=== PATIENT | female | born 1935 | race Caucasian/White ===

== ENCOUNTER 2016-08-17 08:58 | Day surgery (SDC) | payer MEDICARE, OTHER ==
[~2016-08-17 08:58] MED LIST: Cefuroxime 10 MG/ML SYRINGE EYELF SCH; Lidocaine 1% PF 2 ML SDV INJECT SCH; Pilocarpine 4% Ophth Soln 15 ML Bot EYELF SCH; Proparacaine 0.5% Ophth Soln 15 ML Bottle EYEBOTH SCH; Tetracaine 0.5% 2 ML Bottle EYELF SCH
[2016-08-17] MEDS: Polymyxin B/Trimethoprim 10 ML Bottle EYELF SCH ×3 (10:18→11:39)
[2016-08-17] MEDS: Brimonidine 0.2% Ophth Soln 5 ML Bottle EYELF SCH ×3 (10:22→11:39)
[2016-08-17] MEDS: Phenylephrine 2.5% Ophth Soln 2 ML Bot EYELF SCH ×5 (10:24→11:28)
--- NOTE | 2016-08-17 10:45 | PCM.PREANE ---
Preanesthetic Assessment - Anesthesia/Transfusion/Family Hx Anesthesia History: Prior Anesthesia Without Reaction Family History of Anesthesia Reaction: No - Review of Systems General: No Symptoms Pulmonary: No Symptoms Cardiovascular: No Symptoms Gastrointestinal: No symptoms Neurological: No Symptoms Other: Reports: None - Physical Assessment NPO Status Date: 08/17/16 NPO Status Time: 06:30 O2 Sat by Pulse Oximetry: 99 Respiratory Rate: 16 Vital Signs: Last Vital Signs Temp 36.2 C 08/17/16 10:00 Pulse 51 L 08/17/16 10:00 Resp 16 08/17/16 10:00 BP 153/47 H 08/17/16 10:00 Pulse Ox 99 08/17/16 10:00 Height: 1.55 m Weight: 68.039 kg ASA Class: 2 Mental Status: Alert & Oriented x3 Airway Class: Mallampati = 1 Dentition: Reports: Dentures, Partial Thyro-Mental Finger Breadths: 3 Mouth Opening Finger Breadths: 3 ROM/Head Extension: Full Lungs: Clear to auscultation, Normal respiratory effort Cardiovascular: Murmurs - Allergies Allergies/Adverse Reactions: Allergies Allergy/AdvReac Type Severity Reaction Status Date / Time No Known Allergies Allergy Verified 08/16/16 13:25 - Anesthesia Plan Beta Emeterio: Metoprolol Med Last Dose Date: 08/17/16 Med Last Dose Time: 06:30 - Acknowledgements Anesthesia Type Planned: MAC Pt an Appropriate Candidate for the Planned Anesthesia: Yes Alternatives and Risks of Anesthesia Discussed w Pt/Guardian: Yes Pt/Guardian Understands and Agrees with Anesthesia Plan: Yes PreAnesthesia Questionnaire HEENT History: Reports: Impaired vision Other HEENT History: wears eyeglasses Cardiovascular History: Reports: High cholesterol, Hypertension, Other (see below) (murmur) Other Cardiovascular History: leaky heart valve Respiratory History: Reports: None Gastrointestinal History: Reports: None, GERD 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 There was also some evidence of fusion of the pubic symphysis. Moderate amount of degenerative arthritis in both hips.) Neurological History: Reports: None Psychiatric History: Reports: None Endocrine/Metabolic History: Reports: None Hematologic History: Reports: None Immunologic History: Reports: None Dermatologic History: Reports: None - Infectious Disease History Infectious Disease History: Reports: C-difficile, Influenza - Past Surgical History Head Surgeries/Procedures: Reports: None HEENT Surgical History: Reports: None Cardiovascular Surgical History: Reports: None Respiratory Surgical History: Reports: None GI Surgical History: Reports: Cholecystectomy, Colonoscopy Female Surgical History: Reports: Hysterectomy Male Surgical History: Reports: None Endocrine Surgical History: Reports: None Neurological Surgical History: Reports: None Musculoskeletal Surgical History: Reports: None Oncologic Surgical History: Reports: None Dermatological Surgical History: Reports: None (no anesthetic compications) - Past Imaging History Past Imaging History: Reports: None - SUBSTANCE USE Smoking Status *Q: Never Smoker Second Hand Smoke Exposure: No Recreational Drug Use History: No - HOME MEDS Home Medications: Home Meds Acetaminophen [Tylenol Extra Strength] 500 - 1,000 mg PO Q6H PRN 08/01/15 [ History] Furosemide 40 mg PO DAILY 08/01/15 [History] Ibuprofen 400 mg PO Q6H PRN 08/01/15 [History] Lovastatin 40 mg PO BID 08/01/15 [History] Metoprolol Tartrate 75 mg PO BID 08/01/15 [History] Olmesartan/Hydrochlorothiazide [Benicar HCT 40-12.5 MG] 1 each PO DAILY [History] Omeprazole Magnesium [Prilosec Otc] 20 mg PO DAILY #42 tablet. 08/01/15 [Rx] Potassium Chloride 20 meq PO BID 08/01/15 [History] amLODIPine [Norvasc] 5 mg PO DAILY 08/01/15 [History] Aspirin [Ecotrin] 81 mg PO DAILY 08/16/16 [History] - CURRENT (IN HOUSE) MEDS Current Meds: Current Medications Brimonidine Tartrate (Alphagan 0.2% Ophth Soln) 1 ml EYELF ASDIRECTED MAK Stop: 08/17/16 18:00 Last Admin: 08/17/16 10:22 Dose: 1 drop Cefuroxime Sodium (Zinacef) 0 mg EYELF ASDIRECTED MAK Stop: 08/17/16 18:00 Lidocaine HCl (Xylocaine-Mpf 1%) 1 ml INJECT ASDIRECTED MAK Stop: 08/17/16 18:00 Phenylephrine HCl (Edward-Synephrine 2.5% Ophth Soln) 0 ml EYELF ASDIRECTED MAK Stop: 08/17/16 18:00 Last Admin: 08/17/16 10:33 Dose: 1 drop Pilocarpine HCl (Pilocar 4% Ophth Soln) 0 ml EYELF ASDIRECTED MAK Stop: 08/17/16 18:00 Polymyxin/Trimethoprim Sulfate (Polytrim Ophth Soln) 0 ml EYELF ASDIRECTED MAK Stop: 08/17/16 18:00 Last Admin: 08/17/16 10:18 Dose: 1 drop Proparacaine HCl (Proparacaine 0.5% Ophth Soln) 0 ml EYEBOTH ASDIRECTED MAK Stop: 08/17/16 18:00 Tetracaine (Pontocaine 0.5% Ophth Drops) 0 ml EYELF ASDIRECTED MAK Stop: 08/17/16 18:00 Tropicamide (Mydriacyl 1% Ophth Soln) 0 ml EYELF ASDIRECTED [facility] Stop: 08/17/16 18:00 Last Admin: 08/17/16 10:37 Dose: 1 drop
--- NOTE | 2016-08-17 11:47 | PCM48HPAN ---
Post Anesthesia Note - EVALUATION WITHIN 48HRS OF ANESTHETIC Vital Signs in Normal Range: Yes Patient Participated in Evaluation: Yes Respiratory Function Stable: Yes Airway Patent: Yes Cardiovascular Function Stable: Yes Hydration Status Stable: Yes Pain Control Satisfactory: Yes Nausea and Vomiting Control Satisfactory: Yes Mental Status Recovered: Yes
[2016-08-17 13:17] VITALS: BP 144/61
== END 2016-08-17 11:59 | disposition home or self-care (01) ==
LOC: JD.SDS 08:58
PROVIDERS: ATTEND Ophthalmology
DX: H26.9 Unspecified cataract (principal); I10 Essential (primary) hypertension; E78.00 Pure hypercholesterolemia, unspecified; K21.9 Gastro-esophageal reflux disease without esophagitis; Z90.710 Acquired absence of both cervix and uterus; Z98.890 Other specified postprocedural states; Z79.82 Long term (current) use of aspirin; Z90.49 Acquired absence of other specified parts of digestive tract; Z79.899 Other long term (current) drug therapy
CPT/HCPCS: 66984; A9270; C1780; J0697

== ENCOUNTER 2016-09-14 10:02 | Day surgery (SDC) | payer MEDICARE, OTHER ==
[~2016-09-14 10:02] MED LIST changes: -Cefuroxime 10 MG/ML SYRINGE EYELF SCH; +Cefuroxime 10 MG/ML SYRINGE EYERT SCH; -Pilocarpine 4% Ophth Soln 15 ML Bot EYELF SCH; +Pilocarpine 4% Ophth Soln 15 ML Bot EYERT SCH; -Proparacaine 0.5% Ophth Soln 15 ML Bottle EYEBOTH SCH; -Tetracaine 0.5% 2 ML Bottle EYELF SCH
[2016-09-14] MEDS: Polymyxin B/Trimethoprim 10 ML Bottle EYERT SCH ×3 (11:30→13:21)
[2016-09-14] MEDS: Brimonidine 0.2% Ophth Soln 5 ML Bottle EYERT SCH ×3 (11:35→13:21)
[2016-09-14] MEDS: Phenylephrine 2.5% Ophth Soln 2 ML Bot EYERT SCH ×5 (11:40→13:08)
--- NOTE | 2016-09-14 11:56 | PCM.PREANE ---
Preanesthetic Assessment - Anesthesia/Transfusion/Family Hx Anesthesia History: Prior Anesthesia Without Reaction Type of Anesthesia Reaction: Unknown Family History of Anesthesia Reaction: No Type of Transfusion Reactions: Reports: Other (see below) - Review of Systems General: No Symptoms Pulmonary: No Symptoms Cardiovascular: Other Gastrointestinal: Other (heartburn on occasion) Neurological: No Symptoms Other: Reports: Anxiety (HTN, high cholesterol, leaky valve) - Physical Assessment NPO Status Date: 09/13/16 NPO Status Time: 17:30 Pulse: 48 O2 Sat by Pulse Oximetry: 94 Respiratory Rate: 16 Blood Pressure: 157/42 Vital Signs: Last Vital Signs Temp 36.2 C 09/14/16 11:20 Pulse 48 L 09/14/16 11:20 Resp 16 09/14/16 11:20 BP 157/42 H 09/14/16 11:20 Pulse Ox 94 L 09/14/16 11:20 Height: 1.55 m Weight: 65.771 kg ASA Class: 3 Mental Status: Alert & Oriented x3 Dentition: Reports: Partial Thyro-Mental Finger Breadths: 2 Mouth Opening Finger Breadths: 2 ROM/Head Extension: Full Lungs: Clear to auscultation, Normal respiratory effort Cardiovascular: Regular Rate, Murmurs - Allergies Allergies/Adverse Reactions: Allergies Allergy/AdvReac Type Severity Reaction Status Date / Time No Known Allergies Allergy Verified 08/16/16 13:25 - Blood Blood Available: No Product(s) Available: None - Anesthesia Plan Pre-Op Medication Ordered: None Beta Emeterio: Metoprolol Med Last Dose Date: 09/14/16 Med Last Dose Time: 08:00 - Acknowledgements Anesthesia Type Planned: MAC Pt an Appropriate Candidate for the Planned Anesthesia: Yes Alternatives and Risks of Anesthesia Discussed w Pt/Guardian: Yes Pt/Guardian Understands and Agrees with Anesthesia Plan: Yes PreAnesthesia Questionnaire HEENT History: Reports: Impaired Vision Other HEENT History: wears eyeglasses Cardiovascular History: Reports: High Cholesterol, Hypertension, Other (See Below) (murmur) Other Cardiovascular History: leaky heart valve Respiratory History: Reports: None Gastrointestinal History: Reports: None, GERD [employer]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 There was also some evidence of fusion of the pubic symphysis. Moderate amount of degenerative arthritis in both hips.) Neurological History: Reports: None Psychiatric History: Reports: None Endocrine/Metabolic History: Reports: None Hematologic History: Reports: None Immunologic History: Reports: None Dermatologic History: Reports: None - Infectious Disease History Infectious Disease History: Reports: C-Difficile, Influenza - Past Surgical History Head Surgeries/Procedures: Reports: None HEENT Surgical History: Reports: None Cardiovascular Surgical History: Reports: None Respiratory Surgical History: Reports: None GI Surgical History: Reports: Cholecystectomy, Colonoscopy Female Surgical History: Reports: Hysterectomy Male Surgical History: Reports: None Endocrine Surgical History: Reports: None Neurological Surgical History: Reports: None Musculoskeletal Surgical History: Reports: None Oncologic Surgical History: Reports: None Dermatological Surgical History: Reports: None (no anesthetic compications) - Past Imaging History Past Imaging History: Reports: None - SUBSTANCE USE Smoking Status *Q: Never Smoker Second Hand Smoke Exposure: No Recreational Drug Use History: No - HOME MEDS Home Medications: Home Meds Acetaminophen [Tylenol Extra Strength] 500 - 1,000 mg PO Q6H PRN 08/01/15 [ History] Furosemide 40 mg PO DAILY 08/01/15 [History] Lovastatin 40 mg PO BID 08/01/15 [History] Metoprolol Tartrate 75 mg PO BID 08/01/15 [History] Olmesartan/Hydrochlorothiazide [Benicar HCT 40-12.5 MG] 1 each PO DAILY [History] Omeprazole Magnesium [Prilosec Otc] 20 mg PO DAILY #42 tablet. 08/01/15 [Rx] Potassium Chloride 20 meq PO BID 08/01/15 [History] amLODIPine [Norvasc] 5 mg PO DAILY 08/01/15 [History] Aspirin [Ecotrin] 81 mg PO DAILY 08/16/16 [History] - CURRENT (IN HOUSE) MEDS Current Meds: Current Medications Brimonidine Tartrate (Alphagan 0.2% [facility]) 0 ml EYERT ASDIRECTED MAK Stop: 09/14/16 18:00 Last Admin: 09/14/16 11:35 Dose: 1 drop Cefuroxime Sodium (Zinacef) 0 mg EYERT ASDIRECTED MAK Stop: 09/14/16 18:00 Lidocaine HCl (Xylocaine-Mpf 1%) 1 ml INJECT ASDIRECTED MAK Stop: 05/16/17 18:00 Phenylephrine HCl (Edward-Synephrine 2.5% Ophth Soln) 0 ml EYERT ASDIRECTED MAK Stop: 09/14/16 18:00 Last Admin: 09/14/16 11:50 Dose: 1 drop Pilocarpine HCl (Pilocar 4% Ophth Soln) 0 ml EYERT ASDIRECTED [facility] Stop: 09/14/16 18:00 Polymyxin/Trimethoprim Sulfate (Polytrim Ophth Soln) 0 ml EYERT ASDIRECTED [facility] Stop: 09/14/16 18:00 Last Admin: 09/14/16 11:30 Dose: 1 drop Tetracaine (Pontocaine 0.5% Ophth Drops) 0 ml EYERT ASDIRECTED [facility] Stop: 09/14/16 18:00 Tropicamide (Mydriacyl 1% Ophth Soln) 0 ml EYERT ASDIRECTED [facility] Stop: 09/14/16 18:00 Last Admin: 09/14/16 11:45 Dose: 1 drop
[2016-09-14] MEDS: Tetracaine 0.5% 2 ML Bottle EYERT SCH ×3 (12:54→13:15)
[2016-09-14 13:38] VITALS: BP 158/60
== END 2016-09-14 13:32 | disposition home or self-care (01) ==
LOC: JD.SDS 10:02
PROVIDERS: ATTEND Ophthalmology
DX: H25.811 Combined forms of age-related cataract, right eye (principal); H35.3131 Nonexudative age-related macular degeneration, bilateral, early dry stage; H35.363 Drusen (degenerative) of macula, bilateral; H11.153 Pinguecula, bilateral; E78.00 Pure hypercholesterolemia, unspecified; I10 Essential (primary) hypertension; Z98.42 Cataract extraction status, left eye; Z96.1 Presence of intraocular lens; Z87.891 Personal history of nicotine dependence; Z79.82 Long term (current) use of aspirin; Z79.899 Other long term (current) drug therapy; Z90.710 Acquired absence of both cervix and uterus
CPT/HCPCS: 66984; A9270; J0697; C1780